=== PATIENT | male | born 1990 | race Two or more races ===

== ENCOUNTER → 2024-09-28 | Outpatient (CLI) | payer OTHER ==
--- NOTE | 2024-09-28 10:03 | HMCIMG ---
ULTRASOUND ABDOMEN LIMITED ULTRASOUND ABDOMEN VASCULAR INDICATION: Hepatitis B COMPARISON: None FINDINGS: The liver is slightly nodular in contour and increased in echogenicity; no focal lesion demonstrated. Main portal vein is patent, and normal direction of vascular flow demonstrated. The common bile duct diameter measures 3.0 mm. No evidence for calculi, sludge or pericholecystic fluid. No sonographic Tellez's sign elicited by the ultrasound donkey ride operator. Wall thickness measures 2.0 mm. Visible portions of the pancreas appear normal. The right kidney measures 9.5 x 4.1 x 4.8 cm,and is normal in echogenicity, without evidence for hydronephrosis.No shadowing stones demonstrated. Velocities in centimeters/sec: Splenic vein = 37; hepatopedal flow. Left hepatic vein = 22 Middle hepatic vein = 19 Right hepatic vein = 16 Main portal vein = 42; diameter = 3.0 mm. Hepatic artery = 78; RI = 0.77 No free fluid demonstrated. IMPRESSION: Findings consistent with known underlying liver disease, without any liver lesion/mass demonstrated.
== END | disposition home or self-care (01) ==
LOC: RAH 08:35 → EEVIPCON 08:35
PROVIDERS: ATTEND Family Medicine
DX: B19.10 Unspecified viral hepatitis B without hepatic coma (principal); K76.89 Other specified diseases of liver
CPT/HCPCS: 76705